=== PATIENT | male | born 1975 | race Caucasian/White ===

== ENCOUNTER 2017-05-02 11:44 | Inpatient (IN) | payer OTHER ==
[~2017-05-02] VITALS: Ht 177.8 cm; Wt 71.9 kg
[2017-05-02 11:48] VITALS: BP 143/84; PULSE 86; RESP 16; TEMP 98.4; O2SAT 97
--- NOTE | 2017-05-02 13:42 | PD ---
HPI Chief Complaint: GI Complaint Time Seen by Provider: 13:20 Travel History International Travel<30 days: No Contact w/Intl Traveler<30days: No Traveled to known affect area: No History of Present Illness HPI This is a 42-year-old male with history of opiate abuse in the past. He recently relapsed with IV heroin. Over the course of the past few weeks he has noticed increased fatigue as well as yellowing skin, yellowing eyes. He was seen on an outpatient basis and had lab work which revealed elevated liver enzymes. He was found to be hepatitis B+ 5 days ago. He was sent for follow- up with award clerk Dr. Wade where additional lab work was done yesterday. Today his office called the patient and told him to come to the emergency room because his liver enzymes are increasingly elevated. I spoke to the nurse at Dr. Wade's office and this was his recommendation today. The patient endorses continued fatigue as well as jaundice/scleral icterus. He has no other complaints at this time. PFSH Past Medical History Cancer: No Cardiovascular Problems: No Diabetes: No Endocrine: No Genitourinary: No Hepatitis: Yes (B) Hiatal Hernia: No Immune Disorder: No Musculoskeletal: Yes Neurologic: No Psychiatric: No Respiratory: No Thyroid Disease: No Past Surgical History Oral Surgery: Yes (WISDOM TEETH EXTRACTED) Social History Alcohol Use: No Tobacco Use: Yes Substance Use: Yes (HEROIN) Allergies-Medications (Allergen,Severity, Reaction): Coded Allergies: No Known Allergies (Unverified , 05/02/17) Reported Meds & Prescriptions Reported Meds & Active Scripts Active No Active Prescriptions or Reported Medications Review of Systems Except as stated in HPI: all other systems reviewed are Neg Physical Exam Narrative GENERAL: Well-developed well-nourished male in no acute distress SKIN: Warm and dry. Jaundiced. HEAD: Atraumatic. Normocephalic. EYES: Pupils equal and round. Scleral icterus is noted. ENT: No nasal bleeding or discharge. Mucous membranes pink and moist. NECK: Trachea midline. No JVD. CARDIOVASCULAR: Regular rate and rhythm. No murmur appreciated. RESPIRATORY: No accessory muscle use. Clear to auscultation. Breath sounds equal bilaterally. GASTROINTESTINAL: Abdomen soft, non-tender, nondistended. Hepatic and splenic margins not palpable. MUSCULOSKELETAL: No obvious deformities. No clubbing. No cyanosis. No edema. NEUROLOGICAL: Awake and alert. No obvious cranial nerve deficits. Motor grossly within normal limits. Normal speech. PSYCHIATRIC: Appropriate mood and affect; insight and judgment normal. Data Data Last Documented VS Vital Signs Date Time Temp Pulse Resp B/P Pulse Ox O2 Delivery O2 Flow Rate FiO2 05/02/17 11:48 98.4 86 16 143/84 97 Orders Complete Blood Count With Diff (05/02/17 13:42) Comprehensive Metabolic Panel (05/02/17 13:42) Act Partial Throm Time (Ptt) (05/02/17 13:42) Prothrombin Time / Inr (Pt) (05/02/17 13:42) Iv Access Insert/Monitor (05/02/17 13:42) Hep B Viral Dna Qt (05/03/17 14:08) Hepatitis Be Ag (05/02/17 14:08) Hepatitis Delta Antibody (05/02/17 14:08) Diet Clear Liquid (05/02/17 Dinner) MDM Medical Decision Making Medical Screen Exam Complete: Yes Emergency Medical Condition: Yes Medical Record Reviewed: Yes Differential Diagnosis Acute hepatitis, biliary obstruction, malignancy Narrative Course I discussed with Dr. Walters the award clerk lobby concierge for Dr. Wade who would like the patient to be admitted for acute hepatitis as his liver enzymes/bilirubin have been trending up on an outpatient basis. Discussed this recommendation with the patient who was agreeable. Diagnosis Primary Impression: Acute hepatitis B Admitting Information Admitting Physician Requests: Admit Scripts No Active Prescriptions or Reported Meds Fahad Gifford May 02, 2017 13:42
--- NOTE | 2017-05-02 14:05 | PD.CONS ---
HPI History of Present Illness This is a 42 year old male with hx opiate abuse per EMR who was referred to the ER by Dr Wade for elevated LFTs. He was following up with GI yesterday after finding out he has hep B and today was called by Dr Wade's office and told to go to ER. He admits some n/v nonbloody emesis intermittently in the last 3 weeks. He has been having increased appetite. He started noticing jaundice a week ago. Admits joint pains and fatigue. NO abd pain. No diarrhea , blood in stool. 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 He admits IV heroin use 2.5 months ago, relapse after 7 years abstinence. (Swetha Molina) PFSH Past Medical History none Past Surgical History removal hardware left leg ORIF left tibia (Swetha Molina) Coded Allergies: No Known Allergies (Unverified , 05/02/17) Family History throat/neck ca - grandfather Social History no ETOH - prior heavy drinker but sober 8m no tobacco - admits recent IV drug use, prior opiate addiction (Swetha Molina) Review of Systems Constitutional: COMPLAINS OF: Fatigue, DENIES: Fever, Weight loss Eyes: DENIES: Blurred vision Ears, nose, mouth, throat: DENIES: Hearing loss Respiratory: DENIES: Cough Cardiovascular: DENIES: Chest pain Gastrointestinal: COMPLAINS OF: Nausea, Vomiting, DENIES: Abdominal pain, Black stools, Bloody stools, Constipation, Diarrhea, Swelling of Abdomen, Hematemesis Genitourinary: DENIES: Hematuria Musculoskeletal: COMPLAINS OF: Joint pain Integumentary: COMPLAINS OF: Jaundice Hematologic/lymphatic: DENIES: Lymphadenopathy Neurologic: DENIES: Abnormal gait Psychiatric: DENIES: Confusion (Swetha Molina) GI Exam Vitals I&O Vital Signs Date Time Temp Pulse Resp B/P Pulse Ox O2 Delivery O2 Flow Rate FiO2 05/02/17 11:48 98.4 86 16 143/84 97 Physical Examination HEENT: PERRL; normocephalic; atraumatic; + icterus CHEST: CTA CARDIAC: RRR ABDOMEN: Soft, nondistended, nontender; no hepatosplenomegaly; bowel sounds are present in all four quadrants. EXTREMITIES: No clubbing, cyanosis, or edema. SKIN: Normal; no rash; + jaundice. 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 (Swetha Molina) Assessment and Plan Plan ASSESSMENT - hep B, elevated LFTs - labwork pending. hx recent IV drug use. PLAN - await CMP, CBC, coag - check hep D, hep Be, hep B quant - clears for now - will continue to monitor - supportive care This pt seen by Dr Walters and myself and this note is written on his behalf ( Swetha Molina) Physician Comments Patient seen and examined Agree with above Continue with current supportive care Monitor labs (Juan Carlos Walters MD) Swetha Molina May 02, 2017 14:05 Juan Carlos Walters MD May 02, 2017 23:59
[2017-05-02 14:50] LABS: MEAN CELL VOLUME 87.4 FL (80.0-100.0); MEAN CORPUSCULAR HEMOGLOBIN 29.8 PG (27.0-34.0); MEAN CORPUSCULAR HGB CONC 34.1 % (32.0-36.0); PLATELET COUNT 272 TH/MM3 (150-450); RED BLOOD COUNT 4.35 MIL/MM3 (4.50-5.90); RED CELL DISTRIBUTION WIDTH 21.5 % (11.6-17.2)
[2017-05-02 14:56] LABS: APTT (PATIENT) 33.1 SEC (24.3-30.1); PROTHROMBIN TIME - PATIENT 11.4 SEC (9.8-11.6)
[2017-05-02 15:01] LABS: HEMO FLAGS AUTO DIFF
[2017-05-02] MEDS ORDERED: ONDANSETRON HCL 4 MG/2 ML VIAL IV PRN (15:15)
[2017-05-02 15:18] VITALS: BP 114/69; PULSE 70; RESP 16; O2SAT 96
[2017-05-02 15:39] LABS: ANION GAP 9 MEQ/L (5-15); BICARBONATE 27.4 MEQ/L (21.0-32.0); BLOOD UREA NITROGEN 10 MG/DL (7-18); CHLORIDE 101 MEQ/L (98-107); GLOMERULAR FILTRATION RATE 94 ML/MIN (>89); POTASSIUM 3.6 MEQ/L (3.5-5.1); SODIUM (NA) 137 MEQ/L (136-145)
[2017-05-02 15:47] LABS: ALKALINE PHOSPHATASE 229 U/L (45-117); ALT (GPT) 1690 U/L (12-78); AST (GOT) 1013 U/L (15-37); TOTAL BILIRUBIN ADULT 15.6 MG/DL (0.2-1.0)
[2017-05-02 16:00] LABS: BANDS 1 % (0-6); BASOPHILS 1 % (0-2); POLYS (SEG NEUTROPHILS) 59 % (16-70); WBC DIFF SAMPLE 100
[2017-05-02 16:02] LABS: PLATELET ESTIMATE SMEAR NORMAL (NORMAL); PLATELET MORPHOLOGY NORMAL (NORMAL); SCAN/DIFF FINAL DIFF MANUAL
[2017-05-02] MEDS ORDERED: LORazepam 0.5 MG TAB PO PRN (17:00)
--- NOTE | 2017-05-02 17:00 | HHI.HP ---
HPI Service [facility] Hospitalists Primary Care Physician [facility] Admission Diagnosis acute hepatitis B Chief Complaint: Elevated LFTs Travel History International Travel<30 Days: No Contact w/Intl Traveler <30 Da: No Traveled to Known Affected Are: No History of Present Illness Mr. Mccoy is a pleasant 42 y/o WM with recent hx of IV drug use with heroin around 2.5 months ago. Patient reports that he started feeling unwell around 2 weeks ago where he was making mistakes at work and was more forgetful. He went to [facility] on 04/21 and had blood work done which noted elevation in his LFTs of TBili 7.4, AST 1333, ALT 2450, alkPhos 354. Pt was found to be positive for hepatitis BsAg and Hep B core Ab. He was referred to [facility]. Pt was seen by Dr. Wade at [facility] yesterday and was sent for more blood work and when this resulted his LFTs were noted to be TBili 11.3, AST 1110, ALT 2173, AlkPhos 304 and he was sent to the ED. Denies any myalgias, fevers/chills, nausea/vomiting, abdominal pain, weight changes. He has had some generalized fatigue. Pt noted his urine to be getting darker and his stools had become more pale colored. He admits that he has a hx of opiate abuse but had been clean for several years. Then about 2.5 months ago he was with some old friends and did use IV heroin. Review of Systems Constitutional: COMPLAINS OF: Fatigue, DENIES: Fever, Chills, Night Sweats Eyes: DENIES: Vision loss Ears, nose, mouth, throat: DENIES: Hearing loss Respiratory: DENIES: Cough, Shortness of breath Cardiovascular: DENIES: Chest pain Gastrointestinal: DENIES: Abdominal pain, Constipation, Diarrhea, Nausea, Reflux Musculoskeletal: DENIES: Back pain Integumentary: DENIES: Rash Neurologic: DENIES: Headache Psychiatric: COMPLAINS OF: Confusion Past Family Social History Past Medical History Hx of tobacco use Hx of alcohol use, none for the last 8 months IVDA Past Surgical History Compound fracture in left leg s/p surgical repair Removal of hardware from left leg in 02/2016 Oral surgery Reported Medications No Active Prescriptions or Reported Medications Allergies: Coded Allergies: No Known Allergies (Unverified , 05/02/17) Family History Noncontributory Social History Hx of tobacco use, smoked less than 1ppd x 2 years, quit 1 week ago Denies any alcohol use, none for the last 8 months, prior hx of heavy alcohol use He has used heroin intermittently in the past, less than 6 times in his life, but the last time was 2.5 months ago, relapsed after 7 years abstinence. 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 Physical Exam Vital Signs Vital Signs Date Time Temp Pulse Resp B/P Pulse Ox O2 Delivery O2 Flow Rate FiO2 05/02/17 15:18 70 16 114/69 96 Room Air 05/02/17 11:48 98.4 86 16 143/84 97 Physical Exam GENERAL: This is a well-nourished, well-developed patient, in no apparent distress. SKIN: jaundice HEENT: Atraumatic. Normocephalic. No temporal or scalp tenderness. Scleral icterus. Airway patent. NECK: Trachea midline, supple, nontender. CARDIO: Regular RESP: CTA bilaterally. No wheezes, rales, or rhonchi. ABD: +BS, soft, non-tender, nondistended. No hepato-splenomegaly, or palpable masses. No guarding. EXT: Extremities without clubbing, cyanosis, or edema. NEURO: Awake and alert. Motor and sensory grossly within normal limits. Normal speech. Laboratory Laboratory Tests Test 05/02/17 14:00 White Blood Count 5.0 Red Blood Count 4.35 Hemoglobin 13.0 Hematocrit 38.0 Mean Corpuscular Volume 87.4 Mean Corpuscular Hemoglobin 29.8 Mean Corpuscular Hemoglobin 34.1 Concent Red Cell Distribution Width 21.5 Platelet Count 272 Mean Platelet Volume 8.9 Neutrophils (%) (Auto) Lymphocytes (%) (Auto) Monocytes (%) (Auto) Eosinophils (%) (Auto) Basophils (%) (Auto) Neutrophils # (Auto) Lymphocytes # (Auto) Monocytes # (Auto) Eosinophils # (Auto) Basophils # (Auto) CBC Comment AUTO DIFF Differential Total Cells 100 Counted Neutrophils % (Manual) 59 Band Neutrophils % 1 Lymphocytes % 25 Monocytes % 14 Basophils % 1 Neutrophils # (Manual) 3.0 Differential Comment FINAL DIFF MANUAL Platelet Estimate NORMAL Platelet Morphology Comment NORMAL Prothrombin Time 11.4 Prothromb Time International 1.0 Ratio Activated Partial 33.1 Thromboplast Time Sodium Level 137 Potassium Level 3.6 Chloride Level 101 Carbon Dioxide Level 27.4 Anion Gap 9 Blood Urea Nitrogen 10 Creatinine 0.89 Estimat Glomerular Filtration 94 Rate Random Glucose 109 Calcium Level 8.8 Total Bilirubin 15.6 Aspartate Amino Transf 1013 (AST/SGOT) Alanine Aminotransferase 1690 (ALT/SGPT) Alkaline Phosphatase 229 Total Protein 7.0 Albumin 3.6 Result Diagram: 05/02/17 1400 05/02/17 1400 Assessment and Plan Problem List: (1) Acute hepatitis B Status: Acute Plan: - Pt with a hx of IV drug use about 2 months ago no presenting with acutely elevated LFTs and outpt labs indicating positive Hep BsAg and Hep B core ab - GI has been consulted - Await repeat labs for today - Checking labs for HIV, Hep Be Ag, Hep B viral load, and Hep Delta Ab - Monitor LFTs and PT/INR closely - Diet as tolerated - Supportive care - Further recommendations as the case develops Assessment and Plan Patient examined. Assessment and plan formulated with Megan Galindo PA-C. I agree with the above. recent heroin use. acute hep b infection GI consulted to decide on antiviral rx. f/u pending labs. Physician Certification 2 Midnight Certification Type: Admission for Inpatient Services Order for Inpatient Services The services are ordered in accordance with Medicare regulations or non- Medicare payer requirements, as applicable. In the case of services not specified as inpatient-only, they are appropriately provided as inpatient services in accordance with the 2-midnight benchmark. Estimated LOS (days): 2 2 days is the estimated time the patient will need to remain in the hospital, assuming treatment plan goals are met and no additional complications. Post-Hospital Plan: Home Megan Galindo May 02, 2017 17:00 Osvaldo Roe MD May 02, 2017 19:12
[2017-05-02 20:00] VITALS: BP 128/81; PULSE 72; RESP 20; TEMP 98.3; O2SAT 97
[2017-05-03 00:50] VITALS: BP 118/73; PULSE 81; RESP 20; TEMP 97.2; O2SAT 97
[2017-05-03 04:00] VITALS: BP 127/62; PULSE 75; RESP 20; TEMP 98.4; O2SAT 98
[2017-05-03 08:00] VITALS: BP 113/65; PULSE 70; RESP 20; TEMP 97.7; O2SAT 96
[2017-05-03 08:48] LABS: PROTHROMBIN TIME - PATIENT 11.4 SEC (9.8-11.6)
[2017-05-03 09:19] LABS: HEMATOCRIT 35.1 % (39.0-51.0); MEAN CELL VOLUME 86.1 FL (80.0-100.0); MEAN CORPUSCULAR HEMOGLOBIN 30.7 PG (27.0-34.0); MEAN CORPUSCULAR HGB CONC 35.6 % (32.0-36.0); PLATELET COUNT 209 TH/MM3 (150-450); RED BLOOD COUNT 4.08 MIL/MM3 (4.50-5.90); RED CELL DISTRIBUTION WIDTH 21.6 % (11.6-17.2); WHITE BLOOD COUNT 4.1 TH/MM3 (4.0-11.0)
[2017-05-03 09:21] LABS: ANION GAP 7 MEQ/L (5-15); AST (GOT) 760 U/L (15-37); BICARBONATE 27.8 MEQ/L (21.0-32.0); BLOOD UREA NITROGEN 9 MG/DL (7-18); CHLORIDE 103 MEQ/L (98-107); GLOMERULAR FILTRATION RATE 108 ML/MIN (>89); POTASSIUM 3.5 MEQ/L (3.5-5.1); SODIUM (NA) 138 MEQ/L (136-145)
[2017-05-03 09:29] LABS: HEMO FLAGS AUTO DIFF
[2017-05-03 09:47] LABS: ALKALINE PHOSPHATASE 219 U/L (45-117); ALT (GPT) 1304 U/L (12-78); TOTAL BILIRUBIN ADULT 12.1 MG/DL (0.2-1.0)
[2017-05-03 10:23] LABS: BANDS 1 % (0-6); EOSINOPHILS 4 % (0-4); METAMYELOCYTES 1 % (0-1); NEUTROPHIL # MANUAL DIFF 1.7 TH/MM3 (1.8-7.7); POLYS (SEG NEUTROPHILS) 40 % (16-70); WBC DIFF SAMPLE 100
[2017-05-03 10:24] LABS: PLATELET ESTIMATE SMEAR NORMAL (NORMAL); PLATELET MORPHOLOGY NORMAL (NORMAL); SCAN/DIFF FINAL DIFF MANUAL
--- NOTE | 2017-05-03 10:50 | HHI.PR ---
Subjective Remarks pt says he feels better. Objective Vitals jaundice heart reg lung cta abd s/n ext no edema Vital Signs Date Time Temp Pulse Resp B/P Pulse Ox O2 Delivery O2 Flow Rate FiO2 05/03/17 08:00 97.7 70 20 113/65 96 05/03/17 04:00 98.4 75 20 127/62 98 05/03/17 00:50 97.2 81 20 118/73 97 05/02/17 20:00 98.3 72 20 128/81 97 05/02/17 15:18 70 16 114/69 96 Room Air 05/02/17 11:48 98.4 86 16 143/84 97 05/02/17 05/02/17 05/03/17 15:00 23:00 07:00 Intake Total 720 ml Balance 720 ml Intake Oral 720 ml # Voids 1 2 # Bowel Movements 0 0 Result Diagram: 05/03/1772805/03/17 0729 A/P Problem List: (1) Acute hepatitis B Status: Acute Plan: - Pt with a hx of IV drug use about 2 months ago no presenting with acutely elevated LFTs and outpt labs indicating positive Hep BsAg and Hep B core ab - GI has been consulted - Await repeat labs for today - Checking labs for HIV, Hep Be Ag, Hep B viral load, and Hep Delta Ab - Monitor LFTs and PT/INR closely - Diet as tolerated - We had a long talk with patient who indicated that he would cooperate and be patient while we obtained the appropriate blood tests to decide on treatment. Then nursing approached me and said he went outside to smoke...I am told the policy is they will not allow him back to the floor and he will get an AMA d/c. He must come back to ED and check in. Osvaldo Roe MD May 03, 2017 10:50
== END 2017-05-03 10:30 | disposition left against medical advice (07) | DRG 443 ==
LOC: NEPE 11:44 → NEDA 14:14 → N05B 20:45
PROVIDERS: ADMIT Hospitalist; ATTEND Hospitalist
DX: B16.9 Acute hepatitis B without delta-agent and without hepatic coma (principal); F17.210 Nicotine dependence, cigarettes, uncomplicated; R53.83 Other fatigue
CPT/HCPCS: 80053; 85007; 85027; 85610; 85730; 86692; 86703; 87350; 87517

== ENCOUNTER 2017-05-03 10:54 | Observation (INO) | payer OTHER ==
[2017-05-03 10:56] VITALS: BP 133/72; PULSE 76; RESP 20; TEMP 97.8; O2SAT 96
--- NOTE | 2017-05-03 17:09 | PD ---
HPI Chief Complaint: Abnormal Results Time Seen by Provider: 17:08 Travel History International Travel<30 days: No Contact w/Intl Traveler<30days: No Traveled to known affect area: No History of Present Illness HPI 42 YO M presents to the ED for evaluation after leaving the inpatient medical service AMA today. Patient was admitted for acute hepatitis B, elevated LFTs. He states that he went down to his car today and was told that he could come back in the hospital through the ED. He states he did not realize that he was leaving AGAINST MEDICAL ADVICE. He states that he is very afraid of this new diagnosis and wants to be treated. He endorses improved appetite over the last 2 days and states that the jaundice of his skin has somewhat improved. He denies other somatic symptoms. He denies current illicit drug use. PFSH Past Medical History Cancer: No Cardiovascular Problems: No Diabetes: No Endocrine: No Genitourinary: No Hepatitis: Yes (B) Hiatal Hernia: No Immune Disorder: No Musculoskeletal: Yes Neurologic: No Psychiatric: No Reproductive: No Respiratory: No Thyroid Disease: No Past Surgical History Oral Surgery: Yes (WISDOM TEETH EXTRACTED) Social History Alcohol Use: No Tobacco Use: Yes Substance Use: No Allergies-Medications (Allergen,Severity, Reaction): Coded Allergies: No Known Allergies (Unverified , 05/03/17) Reported Meds & Prescriptions Reported Meds & Active Scripts Active No Active Prescriptions or Reported Medications Review of Systems Except as stated in HPI: all other systems reviewed are Neg Physical Exam Narrative GENERAL: Well-nourished, well-developed female in no acute distress. SKIN: Focused skin assessment warm, dry, jaundiced. HEAD: Normocephalic. EYES:++ scleral icterus. No injection or drainage. NECK: Supple, trachea midline. No JVD or lymphadenopathy. CARDIOVASCULAR: Regular rate and rhythm without murmurs, gallops, or rubs. RESPIRATORY: Breath sounds clear and equal bilaterally. No accessory muscle use. GASTROINTESTINAL: Abdomen soft, non-tender, nondistended. Active bowel sounds. MUSCULOSKELETAL: No cyanosis, or edema. BACK: Nontender without obvious deformity. No CVA tenderness. Data Data Last Documented VS Vital Signs Date Time Temp Pulse Resp B/P Pulse Ox O2 Delivery O2 Flow Rate FiO2 05/03/17 10:56 97.8 76 20 133/72 96 Room Air Orders Admit Order (Ed Use Only) (05/03/17 17:36) Admit To Inpatient (05/03/17 ) Vital Signs (Adult) Q4H (05/03/17 17:38) Activity Oob With Assistance (05/03/17 17:38) Diet Regular Basic (05/03/17 Dinner) Scd Bilateral/Knee High KRYSTINA.BID (05/03/17 17:38) MDM Medical Decision Making Medical Screen Exam Complete: Yes Emergency Medical Condition: Yes Differential Diagnosis elevated LFTs versus hepatitis versus noncompliance versus other Narrative Course 42 YO M presents to the ED for evaluation after leaving the inpatient medical service AMA today. Patient was admitted for acute hepatitis B, elevated LFTs. He states that he went down to his car today and was told that he could come back in the hospital through the ED. He states he did not realize that he was leaving AGAINST MEDICAL ADVICE. He states that he is very afraid of this new diagnosis and wants to be treated. He endorses improved appetite over the last 2 days and states that the jaundice of his skin has somewhat improved. He denies other somatic symptoms. He denies current illicit drug use. Vitals within normal limits. Patient is jaundiced on physical exam, otherwise unremarkable. I explained to the patient that if he continues to leave it is unlikely that his insurance will pay the medical claims. I spoke with Dr. Daley who agrees to accept the patient to the medical service. Please see medicine notes for disposition. Scripts No Active Prescriptions or Reported Meds Kalina Ernst May 03, 2017 17:09
[2017-05-03 19:27] VITALS: BP 139/75; PULSE 68; RESP 16; TEMP 98.7; O2SAT 99
[2017-05-03] MEDS ORDERED: NICOTINE 21 MG/24 HR PATCH T-DERMAL ONE (20:45)
[2017-05-03 20:55] VITALS: BP 142/71; PULSE 69; RESP 20; TEMP 98.1; O2SAT 100
--- NOTE | 2017-05-03 21:29 | HHI.HP ---
HPI Service [facility] Hospitalists Primary Care Physician Fadi Herring, DO Admission Diagnosis acute Hep B, elevated LFTs Chief Complaint: readmit left ama earlier today Travel History International Travel<30 Days: No Contact w/Intl Traveler <30 Da: No Traveled to Known Affected Are: No History of Present Illness Mr. Mccoy is a pleasant 42 y/o WM with recent hx of IV drug use with heroin around 2.5 months ago. Patient reports that he started feeling unwell around 2 weeks ago where he was making mistakes at work and was more forgetful. He went to [facility] on 04/21 and had blood work done which noted elevation in his LFTs of TBili 7.4, AST 1333, ALT 2450, alkPhos 354. Pt was found to be positive for hepatitis BsAg and Hep B core Ab. He was referred to [facility]. Pt was seen by Dr. Wade at [facility] yesterday and was sent for more blood work and when this resulted his LFTs were noted to be TBili 11.3, AST 1110, ALT 2173, AlkPhos 304 and he was sent to the ED. Denies any myalgias, fevers/chills, nausea/vomiting, abdominal pain, weight changes. He has had some generalized fatigue. Pt noted his urine to be getting darker and his stools had become more pale colored. He admits that he has a hx of opiate abuse but had been clean for several years. Then about 2.5 months ago he was with some old friends and did use IV heroin. Patient went off floor and had to be readmitted thru er as patient became concerned with his HEP B diagnosis. Patient has been seen by GI and labs ordered. Review of Systems Constitutional: COMPLAINS OF: Fatigue Musculoskeletal: COMPLAINS OF: Joint pain, Muscle aches Other yellow color skin Past Family Social History Past Medical History Hx of tobacco use Hx of alcohol use, none for the last 8 months IVDA Past Surgical History Compound fracture in left leg s/p surgical repair Removal of hardware from left leg in 02/2016 Oral surgery Reported Medications no medicaion Allergies: Coded Allergies: No Known Allergies (Unverified , 05/03/17) Social History positive smoker,history alcohol abuse no drinking over 8 months Positive IV heroin use last 2.5 months ago Physical Exam Vital Signs Vital Signs Date Time Temp Pulse Resp B/P Pulse Ox O2 Delivery O2 Flow Rate FiO2 7/26/17 19:27 98.7 68 16 139/75 99 Room Air 05/03/17 10:56 97.8 76 20 133/72 96 Room Air Physical Exam GENERAL: This is a well-nourished, well-developed patient, in no apparent distress. SKIN: No rashes, ecchymoses or lesions. Cool and dry. yellow color HEAD: Atraumatic. Normocephalic. No temporal or scalp tenderness. EYES: Pupils equal round and reactive. Extraocular motions intact. No scleral icterus. No injection or drainage. ENT: Nose without bleeding, purulent drainage or septal hematoma. Throat without erythema, tonsillar hypertrophy or exudate. Uvula midline. Airway patent. NECK: Trachea midline. No JVD or lymphadenopathy. Supple, nontender, no meningeal signs. CARDIOVASCULAR: Regular rate and rhythm without murmurs, gallops, or rubs. RESPIRATORY: Clear to auscultation. Breath sounds equal bilaterally. No wheezes , rales, or rhonchi. GASTROINTESTINAL: Abdomen soft, non-tender, nondistended. No hepato-splenomegaly , or palpable masses. No guarding. MUSCULOSKELETAL: Extremities without clubbing, cyanosis, or edema. No joint tenderness, effusion, or edema noted. No calf tenderness. Negative Homans sign bilaterally. NEUROLOGICAL: Awake and alert. Cranial nerves II through XII intact. Motor and sensory grossly within normal limits. Five out of 5 muscle strength in all muscle groups. Normal speech. Laboratory as per labs 05/03/17 elevated LFT rest labs pending Assessment and Plan Problem List: (1) Acute hepatitis B Status: Acute Plan: as per GI will need to reconsult for am ,hep viral dna already ordered Assessment and Plan further plan as case develops Code Status full Discussed Condition With patient Physician Certification 2 Midnight Certification Type: Admission for Inpatient Services Order for Inpatient Services The services are ordered in accordance with Medicare regulations or non- Medicare payer requirements, as applicable. In the case of services not specified as inpatient-only, they are appropriately provided as inpatient services in accordance with the 2-midnight benchmark. Estimated LOS (days): 2 2 days is the estimated time the patient will need to remain in the hospital, assuming treatment plan goals are met and no additional complications. Post-Hospital Plan: Home Ventura Durbin MD May 03, 2017 21:29
[2017-05-04] VITALS: BP 109/65; PULSE 72; RESP 18; TEMP 98; O2SAT 95
[2017-05-04 04:00] VITALS: BP 108/60; PULSE 59; RESP 18; TEMP 98; O2SAT 96
[2017-05-04 08:22] VITALS: BP 115/56; PULSE 56; RESP 20; TEMP 97.8; O2SAT 96
[2017-05-04 08:51] LABS: ANION GAP 5 MEQ/L (5-15); AST (GOT) 479 U/L (15-37); BICARBONATE 29.1 MEQ/L (21.0-32.0); BLOOD UREA NITROGEN 8 MG/DL (7-18); CHLORIDE 106 MEQ/L (98-107); SODIUM (NA) 140 MEQ/L (136-145)
[2017-05-04 09:02] LABS: ALKALINE PHOSPHATASE 199 U/L (45-117); ALT (GPT) 985 U/L (12-78); GLOMERULAR FILTRATION RATE 122 ML/MIN (>89); TOTAL BILIRUBIN ADULT 9.3 MG/DL (0.2-1.0)
[2017-05-04] MEDS ORDERED: NICOTINE 21 MG/24 HR PATCH T-DERMAL ONE (09:15)
[2017-05-04] MEDS: REMOVE OLD PATCH T-DERMAL SCH (09:50)
--- NOTE | 2017-05-04 11:10 | HHI.PR ---
Subjective Remarks pt readmitted after leaving the floor w/out permission. Objective Vitals jaundice heart reg lung cta abd s/nt ext no edema Vital Signs Date Time Temp Pulse Resp B/P Pulse Ox O2 Delivery O2 Flow Rate FiO2 05/04/17 08:22 97.8 56 20 115/56 96 05/04/17 04:00 98.0 59 18 108/60 96 05/04/17 00:00 98.0 72 18 109/65 95 05/03/17 20:55 98.1 69 20 142/71 100 05/03/17 19:27 98.7 68 16 139/75 99 Room Air 05/03/17 05/03/17 05/04/17 14:59 22:59 06:59 Intake Total 360 ml 360 ml Balance 360 ml 360 ml Intake Oral 360 ml 360 ml # Voids 1 2 Result Diagram: 05/04/17 0652 A/P Problem List: (1) Acute hepatitis B Status: Acute Plan: acute hep b infection] recent heroin use LFT trending down viral load pending. d/c when ok with GI..rx per GI nicotine patch. regular diet for now. Osvaldo Roe MD May 04, 2017 11:10
--- NOTE | 2017-05-04 11:42 | PD.CONS ---
HPI History of Present Illness This is a 42 year old who is here for evaluation of hep-B. He was seen by our GI services on 05/02, but went out for a cigarette and was discharged but apparently waited down stairs till today where he was readmitted. patient with recent hx of IV drug use with heroin around 2.5 months ago. States, this was experimental, but not routine for him. Denies risky sexual behavior, he has been with same girl friend for 8 yrs. He has been feeling bad on off for few months, but started feeling really sick around 2 weeks ago where he was making mistakes at work and was more forgetful. He went to [facility] on 04/21 and had blood work done which noted elevation in his LFTs of alarming levels. Pt was found to be positive for hepatitis BsAg and Hep B core Ab. He was referred to [facility]. He was advised by Dr. Wade to come the ED for worsening LFTs. US on () ------> given the thickened pattern of the gallbladder wall with minimal pericholecystic fluid as well as dependant gallstones finding are suspicious for cholecystitis, no other acute findings. Denies any myalgias, fevers/chills , nausea/vomiting, abdominal pain, weight changes. He has had some generalized fatigue. LFTs today are trending down. Hep-B PCR pending. (Ambrocio Julien) PFSH Past Medical History none Past Surgical History Compound fracture in left leg s/p surgical repair Removal of hardware from left leg in 02/2016 Oral surgery (Ambrocio Julien) Coded Allergies: No Known Allergies (Unverified , 05/03/17) Medications Current Medications Medications (Trade) Dose Ordered Sig/Ace Route Start Time Stop Time Status Last Admin (Habitrol 21 Mg Patch.24 Hr) 1 patch DAILY T-DERMAL 05/05/17 09:00 Miscellaneous Information 1 DAILY T-DERMAL 05/04/17 09:00 Family History Non contributory Social History Hx of tobacco use Hx of alcohol use, none for the last 8 months IVDA (Ambrocio Julien) Review of Systems Constitutional: COMPLAINS OF: Fatigue, DENIES: Fever Endocrine: DENIES: Polyuria Eyes: DENIES: Double Vision Ears, nose, mouth, throat: DENIES: Hoarseness Respiratory: DENIES: Shortness of breath Cardiovascular: DENIES: Lower Extremity Edema Gastrointestinal: DENIES: Abdominal pain, Black stools, Bloody stools, Constipation, Diarrhea, Nausea, Vomiting, Odynophagia, Swelling of Abdomen, Heartburn, Hematemesis Genitourinary: DENIES: Hematuria Musculoskeletal: DENIES: Neck pain Integumentary: COMPLAINS OF: Jaundice Hematologic/lymphatic: DENIES: Bruising Immunologic/allergic: DENIES: Eczema Neurologic: DENIES: Abnormal gait Psychiatric: COMPLAINS OF: Anxiety (Ambrocio Julien) GI Exam Vitals I&O Vital Signs Date Time Temp Pulse Resp B/P Pulse Ox O2 Delivery O2 Flow Rate FiO2 05/04/17 08:22 97.8 56 20 115/56 96 05/04/17 04:00 98.0 59 18 108/60 96 05/04/17 00:00 98.0 72 18 109/65 95 05/03/17 20:55 98.1 69 20 142/71 100 05/03/17 19:27 98.7 68 16 139/75 99 Room Air I/O 05/03/17 05/03/17 05/03/17 05/04/17 05/04/17 05/04/17 06:59 14:59 22:59 06:59 14:59 22:59 Intake Total 360 ml 360 ml Balance 360 ml 360 ml Intake Oral 360 ml 360 ml # Voids 1 2 Imaging US on (04/25/17) ------> given the thickened pattern of the gallbladder wall with minimal pericholecystic fluid as well as dependant gallstones finding are suspicious for cholecystitis, no other acute findings. Laboratory Test 05/04/17 06:52 Sodium Level 140 MEQ/L Potassium Level 4.0 MEQ/L Chloride Level 106 MEQ/L Carbon Dioxide Level 29.1 MEQ/L Anion Gap 5 MEQ/L Blood Urea Nitrogen 8 MG/DL Creatinine 0.71 MG/DL Estimat Glomerular Filtration 122 ML/MIN Rate Random Glucose 91 MG/DL Calcium Level 8.3 MG/DL Total Bilirubin 9.3 MG/DL Aspartate Amino Transf 479 U/L (AST/SGOT) Alanine Aminotransferase 985 U/L (ALT/SGPT) Alkaline Phosphatase 199 U/L Total Protein 5.9 GM/DL Albumin 2.9 GM/DL Physical Examination HEENT: normocephalic; atraumatic;+ jaundice. NECK: Neck is supple, no JVD, no lymphadenopathy. CHEST: Chest is clear to auscultation and percussion. CARDIAC: Regular rate and rhythm with no murmur gallop or rubs. ABDOMEN: Soft, nondistended, nontender; no hepatosplenomegaly; bowel sounds are present in all four quadrants. EXTREMITIES: No clubbing, cyanosis, or edema. SKIN: Normal; no rash; + jaundice. TINNING EQUIPMENT TENDER: No focal deficits; alert and oriented times three. (Ambrocio Julien) Assessment and Plan Plan - Acute Hep-B- (+) for hep-B AG, IGM , elevated LFTs but trending down patient with recent hx of IV drug use with heroin around 2.5 months ago. States , this was experimental, but not routine for him. Denies risky sexual behavior, he has been with same girl friend for 8 yrs US on (04/25/17) ------> given the thickened pattern of the gallbladder wall with minimal pericholecystic fluid as well as dependant gallstones finding are suspicious for cholecystitis , no other acute findings. - Elevated LFTs- likely secondary to hep-B, hepatitis panel form office records , negative for hep-C - ? cholecystitis- as evident by US, ayaan GIL - Hx of IV drug use, was one time thing Plan: - RADHA - HIDA - Monitor LFTs - GIANNA, AMA, ASMA, Alpha antitrypsin, Celiac, iron and ferritin, AFP - Hep- B and disease progress discussed with patient and girl friend in details - Safety and transmission routs and precautions discussed with patient and girlfriends - Supportive care - Patient seen and examined by Dr. Walters and myself and this note is written on his behalf. (Ambrocio Julien) Physician Comments Patient seen and examined Agree with above Continue with current supportive care Monitor labs Once liver function tests stabilize and begin to decline then one can recommend discharge home (Juan Carlos Walters MD) Ambrocio Julien May 04, 2017 11:42 Juan Carlos Walters MD May 04, 2017 21:22
[2017-05-04 12:00] VITALS: BP 114/59; PULSE 53; RESP 20; TEMP 98; O2SAT 98
[2017-05-04 14:15] LABS: TRANSFERRIN IRON PROFILE 297 MG/DL (200-360)
[2017-05-04 14:17] LABS: FERRITIN 1148 NG/ML (26-388)
[2017-05-04 16:29] VITALS: BP 113/68; PULSE 58; RESP 20; TEMP 98.3; O2SAT 96
[2017-05-04] MEDS: LORazepam 0.5 MG TAB PO PRN (17:51)
[2017-05-04 21:00] VITALS: BP 115/68; PULSE 65; RESP 20; TEMP 98.3; O2SAT 97
[2017-05-05 00:56] VITALS: BP 109/62; PULSE 75; RESP 20; TEMP 97.2; O2SAT 99
[2017-05-05 05:29] VITALS: BP 109/70; PULSE 55; RESP 20; TEMP 97.4; O2SAT 98
[2017-05-05 08:00] VITALS: BP 107/52; PULSE 56; RESP 18; TEMP 97.2; O2SAT 95
[2017-05-05] MEDS: REMOVE OLD PATCH T-DERMAL SCH (09:00)
[2017-05-05] MEDS ORDERED: NICOTINE 21 MG/24 HR PATCH T-DERMAL SCH (09:00)
[2017-05-05 09:30] LABS: INDIRECT BILIRUBIN 1.4 MG/DL (0.0-0.8); TOTAL BILIRUBIN ADULT 7.8 MG/DL (0.2-1.0)
[2017-05-05] MEDS: LORazepam 0.5 MG TAB PO PRN (09:35)
--- NOTE | 2017-05-05 13:05 | HHI.PR ---
Subjective Remarks No new complaints Pt is anxious for discharge Objective Vitals Vital Signs Date Time Temp Pulse Resp B/P Pulse Ox O2 Delivery O2 Flow Rate FiO2 05/05/17 08:00 97.2 56 18 107/52 95 05/05/17 05:29 97.4 55 20 109/70 98 05/05/17 00:56 97.2 75 20 109/62 99 05/04/17 21:00 98.3 65 20 115/68 97 05/04/17 16:29 98.3 58 20 113/68 96 05/04/17 05/04/17 05/05/17 14:59 22:59 06:59 Intake Total 960 ml Output Total 0 ml Balance 960 ml 0 ml Intake Oral 960 ml Output Urine Total 0 ml # Voids 4 1 Result Diagram: 05/04/17 0652 Other Results Laboratory Tests Test 05/04/17 05/04/17 05/05/17 06:52 12:36 08:00 Sodium Level 140 MEQ/L Potassium Level 4.0 MEQ/L Chloride Level 106 MEQ/L Carbon Dioxide Level 29.1 MEQ/L Anion Gap 5 MEQ/L Blood Urea Nitrogen 8 MG/DL Creatinine 0.71 MG/DL Estimat Glomerular Filtration 122 ML/MIN Rate Random Glucose 91 MG/DL Calcium Level 8.3 MG/DL Total Bilirubin 9.3 MG/DL 7.8 MG/DL Aspartate Amino Transf 479 U/L 339 U/L (AST/SGOT) Alanine Aminotransferase 985 U/L 762 U/L (ALT/SGPT) Alkaline Phosphatase 199 U/L 214 U/L Total Protein 5.9 GM/DL 5.8 GM/DL Albumin 2.9 GM/DL 3.0 GM/DL Iron Level 269 MCG/DL Total Iron Binding Capacity 416 MCG/DL Percent Iron Saturation 64.7 % Ferritin 1148 NG/ML Tumor Marker Alpha Fetoprotein 19.2 NG/ML Direct Bilirubin 6.4 MG/DL Indirect Bilirubin 1.4 MG/DL Imaging Last Impressions Hepatobiliary Scan Nuclear Medicine 05/05/17 0000 Signed Impressions: Service Date/Time: Friday, May 05, 2017 09:49 - CONCLUSION: Nonvisualization of bile ducts or bowel and the gallbladder is visualized possibility of complete common bile duct obstruction should be entertained. Ly English MD Objective Remarks General: NAD, AAOx3, jaundice Chest: CTA Cardiac: Regular Abd: +BS, soft ND/NT Ext: No edema A/P Problem List: (1) Acute hepatitis B Status: Acute Plan: - Pt with a hx of IV drug use about 2 months ago presented with acutely elevated LFTs and outpt labs indicating positive Hep BsAg and Hep B core ab - GI following. - HIV negative - Hep Be Ag (pending), Hep B viral load 52,800units/mL, and Hep Delta Ab ( pending) - AMA, ASMA, GIANNA, TTg, Ceruloplasmin, [id number] all pending. - AFP 19.2 - LFTs are trending down. - HIDA scan --> Nonvisualization of bile ducts or bowel and the gallbladder is visualized possibility of complete common bile duct obstruction should be entertained. - Spoke with GI regarding these results and felt that this test result is unreliable due to current liver issues. - GI has cleared the patient for discharge with outpt followup in 1-2 weeks. - Pt has a script for repeat labs next week with results to Dr. Walters's office. - Pt is to followup with his PCP, Dr. Fadi Herring, in 1 week as well. Assessment and Plan Patient examined. Assessment and plan formulated with Megan Galindo PA-C. I agree with the above. acute hep b infection. LFT trending down and feels well. d/c with GI f/u Megan Galindo May 05, 2017 13:05 Osvaldo Roe MD May 05, 2017 21:29
--- NOTE | 2017-05-05 13:59 | RADRPT ---
EXAM DATE/TIME: 05/05/2017 09:49 [facility] COMPARISON: No previous studies available for comparison. INDICATIONS : Abdominal pain with elevated LFT's. DOSE: 4.2 mCi Tc99m Mebrofenin IV MEDICAL HISTORY : Hepatitis B. SURGICAL HISTORY : Left leg. ENCOUNTER: Initial ACUITY: 2 days PAIN SCALE: 3/10 LOCATION: Bilateral upper quadrant TECHNIQUE: Following the intravenous administration of radiotracer, dynamic sequential images were performed wit h continuous acquisition. FINDINGS: There is slightly diminished uptake when he appendicitis indicating some degree of hepatocellula r dysfunction. Bowel is not visualized up until 2 hours of scanning. Gallbladder is visualized at 15 minutes. CCK was not given. CONCLUSION: Nonvisualization of bile ducts or bowel and the gallbladder is visualized possibility of complete com mon bile duct obstruction should be entertained. Ly English MD on May 05, 2017 at 13:55 Board Certified Radiologist. This report was verified electronically.
--- NOTE | 2017-05-05 15:27 | HHI.DCPOC ---
Discharge Care Plan Diagnosis: (1) Acute hepatitis B Goals to Promote Your Health * To prevent worsening of your condition and complications * To maintain your health at the optimal level Directions to Meet Your Goals Take your medications as prescribed Follow your dietary instruction Follow activity as directed Keep your appointments as scheduled Take your immunizations and boosters as scheduled If your symptoms worsen call your PCP, if no PCP go to Urgent Care Center or Emergency Room Smoking is Dangerous to Your Health. Avoid second hand smoke Call the 24-hour hour crisis hotline for domestic abuse at Megan Galindo May 05, 2017 15:27
--- NOTE | 2017-05-05 16:50 | HHI.GIFU ---
Subjective Remarks Patient is sitting up in chair going home soon. Doing good, denies nausea, vomiting, or abd pain. (Ambrocio Julien) Objective Vitals I&O Vital Signs Date Time Temp Pulse Resp B/P Pulse Ox O2 Delivery O2 Flow Rate FiO2 05/05/17 08:00 97.2 56 18 107/52 95 05/05/17 05:29 97.4 55 20 109/70 98 05/05/17 00:56 97.2 75 20 109/62 99 05/04/17 21:00 98.3 65 20 115/68 97 I/O 05/04/17 05/04/17 05/04/17 05/05/17 05/05/17 05/05/17 07:00 15:00 23:00 07:00 15:00 23:00 Intake Total 360 ml 960 ml Output Total 0 ml Balance 360 ml 960 ml 0 ml Intake Oral 360 ml 960 ml Output Urine Total 0 ml # Voids 2 4 1 Laboratory Laboratory Tests Test 05/05/17 08:00 Total Bilirubin 7.8 Direct Bilirubin 6.4 Indirect Bilirubin 1.4 Aspartate Amino Transf 339 (AST/SGOT) Alanine Aminotransferase 762 (ALT/SGPT) Alkaline Phosphatase 214 Total Protein 5.8 Albumin 3.0 Imaging Last Impressions Hepatobiliary Scan Nuclear Medicine 05/05/17 0000 Signed Impressions: Service Date/Time: Friday, May 05, 2017 09:49 - CONCLUSION: Nonvisualization of bile ducts or bowel and the gallbladder is visualized possibility of complete common bile duct obstruction should be entertained. Ly English MD Physical Exam HEENT: normocephalic; atraumatic; + jaundice. NECK: Neck is supple, no JVD, no lymphadenopathy. CHEST: Chest is clear to auscultation and percussion. CARDIAC: Regular rate and rhythm with no murmur gallop or rubs. ABDOMEN: Soft, nondistended, nontender; no hepatosplenomegaly; bowel sounds are present in all four quadrants. EXTREMITIES: No clubbing, cyanosis, or edema. SKIN: Normal; no rash; + jaundice. PARACHUTE OFFICER: No focal deficits; alert and oriented times three. (Ambrocio Julien) Assessment and Plan Plan - Acute Hep-B- (+) for hep-B AG, IGM , elevated LFTs continue to trend down patient with recent hx of IV drug use with heroin around 2.5 months ago. States , this was experimental, but not routine for him. Denies risky sexual behavior, he has been with same girl friend for 8 yrs US on (04/25/17) ------> given the thickened pattern of the gallbladder wall with minimal pericholecystic fluid as well as dependant gallstones finding are suspicious for cholecystitis , no other acute findings. - Elevated LFTs- likely secondary to hep-B, hepatitis panel form office records , negative for hep-C Some labs still pending, AFP high 19.2, Alpha antitrypsin 212, Fe 1148, iron % 64.7 GIANNA negative - ? cholecystitis- as evident by US, Hepatobiliary Scan Nuclear Medicine Nonvisualization of bile ducts or bowel and the gallbladder is visualized possibility of complete common bile duct obstruction should be entertained. findings could be related to acute hepatitis as patient is asymptomatic and LFTs trending down - Hx of IV drug use, was one time thing Plan: - RADHA - Await AMA, ASMA, Celiac, - Hep- B and disease progress discussed with patient and girl friend in details - Safety and transmission routs and precautions discussed with patient and girlfriend - Ok to DC home, Will need Close f/u with GI - Repeat Hep-B pcr in 3 months - Monitor LFTs - will need Hfe testing but could be done as an OP - Supportive care - Patient seen and examined by Dr. Walters and myself and this note is written on his behalf. (Ambrocio Julien) Physician Comments Patient seen and examined Agree with above Continue with current supportive care Monitor labs Okay for DC to follow-up with GI in 2 weeks (Juan Carlos Walters MD) Ambrocio Julien May 05, 2017 16:49 Juan Carlos Walters MD May 05, 2017 22:04
[2017-05-06 23:53] LABS: MITOCHONDRIAL ABS LESS THAN 20.0 U (())
== END 2017-05-05 22:02 | disposition home or self-care (01) ==
LOC: NEPE 10:54 → NEDH 17:38 → INTOOBSV 17:38 → N05B 20:45
PROVIDERS: ADMIT Hospitalist; ATTEND Hospitalist
DX: B16.9 Acute hepatitis B without delta-agent and without hepatic coma (principal); R79.89 Other specified abnormal findings of blood chemistry; R53.83 Other fatigue; M25.50 Pain in unspecified joint; M79.1 Myalgia; F11.10 Opioid abuse, uncomplicated; F17.200 Nicotine dependence, unspecified, uncomplicated
CPT/HCPCS: 78226; 80053; 80076; 82103; 82105; 82390; 82728; 83516; 83520; 83540; 83550; 86038; 86255; 99283; A9537; G0378